=== PATIENT | female | born 1990 | race Caucasian/White ===

== ENCOUNTER 2017-10-12 12:47 | Outpatient (CLI) | payer BC ==
[~2017-10-12 12:47] MED LIST: Iopamidol 300 61% 50 ML VIAL FS ONE
--- NOTE | 2017-10-12 16:38 | RAD ---
HYSTEROSALPINGOGRAM: INDICATION: Infertility. TECHNIQUE: Informed consent was obtained. Preprocedure night order selector images were obtained. The patient was counseled o n the techniques of the examination prior to the procedure. Timeout was performed. The patient was then placed prone on the fluoroscopic table. The patient was placed in the lithotomy position on the fluoroscopic table. A speculum was placed and the cervix was cleansed with Betadine swabs. Multipl e attempts were made to cannulate the cervical canal utilizing the sound device. The sound device co uld be introduced approximately 1 to 2 cm. Multiple attempts were made to pass the catheter into the endometrial canal and that proved to be unsuccessful. The procedure was then cancelled due to unsuc cessful cannulation of the endometrial canal. FINDINGS: There is a small bone island within the left acetabulum. The bowel gas pattern is unobstructed. SI joints appear within normal limits. No suspicious calcifications are noted. Total fluoroscopic time was 0.9 minutes. Total exposure was 187.7 mGy*^m2. IMPRESSION: Unsuccessful hysterosalpingogram due to inability to cannulate the endometrial canal during the exami [facility]. Will refer this patient back to the ordering [facility] [employer]UCATIONAL AIDE. A hysterosalpingogram in conjunction w [facility]UC[facility] AIDE may be helpful in cannulization of the endometrial canal as there is concern for cervical canal stenosis. Dilatation of the endocervical canal may be necessary prior to completion of the HSG . The patient was counseled on the recommendations prior to her leaving the hospital. POS: [facility]
== END 2017-10-12 12:48 | disposition home or self-care (01) ==
LOC: RAD 12:47
PROVIDERS: ATTEND Obstetrics & Gynecology
DX: N97.9 Female infertility, unspecified (principal)
CPT/HCPCS: 58340; 74740